=== PATIENT | male | born 1975 | race African-American/Black ===

== ENCOUNTER 2023-04-21 13:48 | Inpatient (IN) | payer OTHER, MEDICAID ==
[~2023-04-21] VITALS: Ht 185.4 cm; Wt 86.2 kg
[2023-04-21] MEDS ORDERED: HALOPERIDOL LACTATE 5MG/ML VIAL IM ONE (14:00)
[2023-04-21] MEDS ORDERED: DIPHENHYDRAMINE 50MG/ML VIAL IM PRN (14:00)
[2023-04-21] MEDS ORDERED: LORAZEPAM 2MG/ML CPJ IM ONE (14:00)
[2023-04-21] MEDS ORDERED: LORAZEPAM 4MG/ML VIAL ONE (14:05)
[2023-04-21] MEDS ORDERED: LORAZEPAM 4MG/ML VIAL IM NR (14:15)
[2023-04-21] MEDS ORDERED: HYDRALAZINE 20MG/ML VIAL IV ONE (23:00)
[2023-04-21 23:17] LABS: BASOPHILS % 0.1 % (0.0-2.0); EOSINOPHILS % 0.3 % (0.0-5.0); HEMATOCRIT. 41.6 % (42.0-52.0); HEMOGLOBIN. 13.4 g/dL (14.0-18.0); LYMPHOCYTES % 11.8 % (20.0-50.0); MEAN CORPUSCULAR HEMOGLOBIN 30.6 pg (28.0-32.0); MEAN CORPUSCULAR HGB CONC 32.2 g/dL (31.0-37.0); MEAN CORPUSCULAR VOLUME 95.2 fL (80.0-94.0); MEAN PLATELET VOLUME 9.1 fl (7.4-10.4); MONOCYTES % 10.9 % (2.0-8.0); NEUTROPHILS % 76.9 % (40.0-76.0); PLATELET 229 x1000/uL (130-400); RED BLOOD CELL COUNT 4.37 mill/uL (4.7-6.1); RED CELL DISTRIBUTION WIDTH 13.2 % (11.6-14.6); WHITE BLOOD COUNT 16.5 x1000/uL (4.5-11.0)
[2023-04-21 23:28] LABS: ALANINE AMINOTRANSFERASE 27 IU/L (10-49); ALBUMIN 4.3 g/dL (3.2-4.8); ASPARTATE AMINOTRANSFERASE 77 IU/L (<34); BILIRUBIN TOTAL 1.5 mg/dL (0.1-1.0); CALCIUM 9.7 mg/dL (8.7-10.4); CARBON DIOXIDE 28 mEq/L (21-32); CHLORIDE 111 mEq/L (98-107); CREATININE 1.4 mg/dL (0.6-1.3); GLUCOSE 102 mg/dL (70-105); POTASSIUM 4.3 mEq/L (3.5-5.1); PROTEIN TOTAL 7.9 g/dL (6.0-8.3); SODIUM 144 mEq/L (136-145); UREA NITROGEN BLOOD 20 mg/dL (9-23)
[2023-04-21 23:30] LABS: *AMPHETAMINES SCREEN URINE PRESUMPTIVE POSITIVE (NEGATIVE); *BARBITURATES SCREEN URINE NEGATIVE (NEGATIVE); *BENZODIAZEPINES SCREEN URINE PRESUMPTIVE POSITIVE (NEGATIVE); *COCAINE SCREEN URINE NEGATIVE (NEGATIVE); CANNABINOID URINE SCREEN NEGATIVE (NEGATIVE); ECSTASY MDMA SCREEN URINE CONF.TEST INDICATED (NEGATIVE); METHADONE URINE SCREEN Neg (NEGATIVE); OPIATES URINE SCREEN NEGATIVE (NEGATIVE); PHENCYCLIDINE URINE SCREEN PRESUMTIVE POSITIVE (NEGATIVE)
[2023-04-21 23:50] LABS: ETHANOL BLOOD < 10 mg/dL (<10)
[2023-04-21 23:54] LABS: CLARITY URINE CLEAR (CLEAR); COLOR URINE YELLOW (YELLOW)
[2023-04-21 23:55] LABS: GLUCOSE URINE NEGATIVE (NEGATIVE); KETONES URINE NEGATIVE (NEGATIVE); LEUKOCYTE ESTERASE URINE NEGATIVE (NEGATIVE); NITRITE URINE NEGATIVE (NEGATIVE); OCCULT BLOOD URINE 2+ (NEGATIVE); PH URINE 5.5 (4.5-8.0); PROTEIN URINE NEGATIVE (NEGATIVE); SPECIFIC GRAVITY URINE 1.013 (1.005-1.030); UROBILINOGEN URINE 0.2 E.U./dL (0.2-1.0)
[2023-04-22] LABS: TROPONIN I HIGH SENSITIVITY 125 ng/L (3.0-53)
[2023-04-22] LABS: SQUAMOUS EPITHELIAL CELL URINE FEW /lpf (RARE/1+); WBC URINE 0-2 /hpf (0-2)
[2023-04-22 00:01] LABS: BACTERIA URINE NONE SEEN
[2023-04-22] MEDS ORDERED: HYDRALAZINE 20MG/ML VIAL IV NR (01:45)
[2023-04-22 08:00] VITALS: BP_SYST 155; BP_SYST 173; BP_DIAS 81; BP_DIAS 82; PULSE 85; PULSE 89; RESP 20; TEMP 97
[2023-04-22 09:00] VITALS: BP 155/81; PULSE 89; RESP 18; TEMP 97.8
[2023-04-22] MEDS ORDERED: HYDRALAZINE 20MG/ML VIAL IV PRN (10:45)
[2023-04-22] MEDS ORDERED: CLONIDINE 0.1MG TABLET PO PRN (10:45)
[2023-04-22 11:56] VITALS: BP 186/85; PULSE 91; RESP 20; TEMP 97.6
[2023-04-22] MEDS: ENOXAPARIN 40MG/0.4ML SYR SUBCUT SCH (12:01)
[2023-04-22] MEDS: DEXT 5%/0.45% NACL 1000ML 1,000 ML IV SCH (12:01)
[2023-04-22 13:18] LABS: BASOPHILS % 0.2 % (0.0-2.0); EOSINOPHILS % 0.6 % (0.0-5.0); HEMATOCRIT. 41.7 % (42.0-52.0); HEMOGLOBIN. 13.5 g/dL (14.0-18.0); LYMPHOCYTES % 14.4 % (20.0-50.0); MEAN CORPUSCULAR HEMOGLOBIN 30.3 pg (28.0-32.0); MEAN CORPUSCULAR HGB CONC 32.5 g/dL (31.0-37.0); MEAN CORPUSCULAR VOLUME 93.2 fL (80.0-94.0); MEAN PLATELET VOLUME 9.6 fl (7.4-10.4); MONOCYTES % 10.6 % (2.0-8.0); NEUTROPHILS % 74.2 % (40.0-76.0); PLATELET 197 x1000/uL (130-400); RED BLOOD CELL COUNT 4.47 mill/uL (4.7-6.1); RED CELL DISTRIBUTION WIDTH 13.8 % (11.6-14.6); WHITE BLOOD COUNT 9.1 x1000/uL (4.5-11.0)
[2023-04-22 13:25] LABS: CALCIUM 9.2 mg/dL (8.7-10.4); CARBON DIOXIDE 28 mEq/L (21-32); CHLORIDE 107 mEq/L (98-107); CREATININE 1.2 mg/dL (0.6-1.3); GLUCOSE 136 mg/dL (70-105); POTASSIUM 3.7 mEq/L (3.5-5.1); SODIUM 143 mEq/L (136-145); TROPONIN I HIGH SENSITIVITY 85 ng/L (3.0-53); UREA NITROGEN BLOOD 11 mg/dL (9-23)
[2023-04-22 16:00] VITALS: BP_SYST 145; BP_SYST 171; BP_DIAS 82; BP_DIAS 86; PULSE 85; RESP 18; RESP 20; TEMP 98.3
[2023-04-22 20:00] VITALS: BP 158/83; PULSE 86; RESP 19; TEMP 98.2
[2023-04-23] VITALS: BP 154/86; PULSE 87; RESP 19; TEMP 97.7
[2023-04-23] MEDS: DEXT 5%/0.45% NACL 1000ML 1,000 ML IV SCH ×2 (00:05→12:43)
[2023-04-23 04:00] VITALS: BP 165/90; PULSE 76; RESP 19; TEMP 98.1
[2023-04-23 08:00] VITALS: BP 152/83; PULSE 72; RESP 18; TEMP 97.8
[2023-04-23] MEDS: ENOXAPARIN 40MG/0.4ML SYR SUBCUT SCH ×2 (08:45→09:00)
[2023-04-23 12:00] VITALS: BP 158/92; PULSE 77; RESP 18; TEMP 97.9
[2023-04-23 16:00] VITALS: BP 155/66; PULSE 84; RESP 18; TEMP 97.9
[2023-04-23 17:26] LABS: TROPONIN I HIGH SENSITIVITY 57 ng/L (3.0-53)
[2023-04-23 20:00] VITALS: BP 139/83; PULSE 81; RESP 18; TEMP 98.4
[2023-04-24] VITALS: BP 140/80; PULSE 86; RESP 18; TEMP 97.8
[2023-04-24] MEDS: DEXT 5%/0.45% NACL 1000ML 1,000 ML IV SCH (02:45)
[2023-04-24 04:00] VITALS: BP 158/88; PULSE 72; RESP 18; TEMP 98.9
[2023-04-24 08:00] VITALS: BP 143/64; PULSE 78; RESP 15; TEMP 98.7
[2023-04-24] MEDS: ENOXAPARIN 40MG/0.4ML SYR SUBCUT SCH (08:34)
[2023-04-24 12:00] VITALS: BP 155/70; PULSE 87; RESP 17; TEMP 97
[2023-04-24 12:01] VITALS: BP 155/70; PULSE 87; TEMP 97; O2SAT 99
== END 2023-04-24 12:45 | DRG 917 ==
LOC: ER 13:48 → EDBD 04-22 01:42 → 8WST 04-22 01:42 → EDBEDREQTM 04-22 01:47 → EDBEDREQ 04-22 01:47
PROVIDERS: ADMIT Internal Medicine; ATTEND Internal Medicine
DX: T50.991A Poisoning by other drugs, medicaments and biological substances, accidental (unintentional), initial encounter (principal); G92.8 Other toxic encephalopathy; I21.A1 Myocardial infarction type 2; N17.9 Acute kidney failure, unspecified; Z59.00 Homelessness unspecified; F19.10 Other psychoactive substance abuse, uncomplicated; F15.10 Other stimulant abuse, uncomplicated; D72.829 Elevated white blood cell count, unspecified; Z79.899 Other long term (current) drug therapy; Y92.89 Other specified places as the place of occurrence of the external cause
CPT/HCPCS: 36415; 71045; 80048; 80053; 80305; 80320; 81003; 84484; 85025; 93005; 93306; 99291; J0360; J1200; J1630; J1650; J2060; G0480